=== PATIENT | female | born 1975 | race Caucasian/White ===

== ENCOUNTER 2018-07-01 14:55 | Emergency (ER) | payer BC ==
[2018-07-01 15:04] VITALS: BP 127/67
[2018-07-01] MEDS ORDERED: ALBU2.5V8 INH (15:30)
[2018-07-01] MEDS ORDERED: DOXY100T PO (15:30)
[2018-07-01] MEDS ORDERED: GUAI-40 PO (15:30)
--- NOTE | 2018-07-01 16:33 | ED.ADGEN ---
Past History Past Medical History: No Pertinent History Past Surgical History: No Surgical History Alcohol Use: None Drug Use: None Adult General Chief Complaint Chief Complaint Cough, chest congestion HPI HPI Patient is a 42-year-old female presents to nasal congestion, rhinorrhea, chest congestion with productive cough. Patient reports fullness in right upper chest region with difficulty fully clearing phlegm. 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 No history of asthma cardiac or pulmonary disease. Patient is a non-smoker. [] Review of Systems Review of Systems Review symptoms as per history of present illness. All other review symptoms are negative. All other systems were reviewed and found to be within normal limits, except as documented in this note. Allergies Allergies Allergies Coded Allergies Type Severity Reaction Last Updated Verified Penicillins Allergy Unknown 07/01/18 Yes Physical Exam Physical Exam Constitutional: Well developed, well nourished, no acute distress, non-toxic appearance. [] HENT: Normocephalic, atraumatic, bilateral external ears normal,no sinus tenderness to palpation, oropharynx moist, no oral exudates, nose normal. [] Eyes: PERRLA, EOMI, conjunctiva normal, no discharge. [] Neck: Normal range of motion, no tenderness, supple, no stridor. [] Cardiovascular:Heart rate regular rhythm, no murmur [] Lungs & Thorax: respirations nonlabored,coarse rhonchi right upper lobe, no wheezing or rales. [] Abdomen: Bowel sounds normal, soft, no tenderness. [] Skin: Warm, dry. [] Back: No tenderness. [] Extremities: No tenderness. [] Neurologic: Alert and oriented X 3, normal motor function, normal sensory function, no focal deficits noted. [] Psychologic: Affect normal, judgement normal, mood normal. [] Current Patient Data Vital Signs Vital Signs Date Time Temp Pulse Resp B/P (MAP) Pulse Ox O2 Delivery O2 Flow Rate FiO2 07/01/18 15:04 98.7 76 97 Room Air EKG EKG [] Radiology/Procedures Radiology/Procedures [] Course & Med Decision Making Course & Med Decision Making Pertinent Labs and Imaging studies reviewed. (See chart for details) [Exam is consistent with bronchial pneumonia. Abx, inhaler and mucolytic prescribed. ] Final Impression Final Impression [1. Bronchial pneumonia] Dragon Disclaimer Dragon Disclaimer This electronic medical record was generated, in whole or in part, using a voice recognition dictation system. AURE SPARROW DO Jul 01, 2018 16:33
== END 2018-07-01 15:43 | disposition home or self-care (01) ==
LOC: ER 14:55
DX: J18.0 Bronchopneumonia, unspecified organism (principal); Z88.0 Allergy status to penicillin
CPT/HCPCS: 99283